=== PATIENT | female | born 1970 | race Caucasian/White ===

== ENCOUNTER 2017-08-28 17:25 | Emergency (ER) | payer OTHER ==
[~2017-08-28] VITALS: Ht 170.2 cm; Wt 100.0 kg
[2017-08-28 17:37] VITALS: BP 136/85; PULSE 81; RESP 20; TEMP 98.6; O2SAT 96
[2017-08-28] MEDS ORDERED: MIDAZOLAM HCL 2 MG/2 ML VIAL IV PUSH ONE ×2 (18:30→19:00)
--- NOTE | 2017-08-28 18:30 | RADRPT ---
EXAM DATE/TIME: 08/28/2017 18:02 [facility] COMPARISON: No previous studies available for comparison. INDICATIONS : Left elbow pain post fall. MEDICAL HISTORY : None. SURGICAL HISTORY : None. ENCOUNTER: Initial ACUITY: 1 day PAIN SCORE: 10/10 LOCATION: Left elbow. FINDINGS: Abnormal. There is dislocation of the humerus with respect to the radius and ulna with the humerus b eing displaced anteriorly and medially. There is a linear calcific or ossific density seen in the ol ecranon fossa which measures 2 x 6 mm. Prominent soft tissue swelling about the elbow. CONCLUSION: Humeral dislocation with respect to the forearm. Possible small ossific fragment in the olecranon fo ssa. Curtis Flowers MD on August 28, 2017 at 18:26 Board Certified Radiologist. This report was verified electronically.
--- NOTE | 2017-08-28 18:35 | RADRPT ---
EXAM DATE/TIME: 08/28/2017 18:09 [facility] COMPARISON: No previous studies available for comparison. INDICATIONS : Right ankle pain post fall. MEDICAL HISTORY : None. SURGICAL HISTORY : None. ENCOUNTER: Initial ACUITY: 1 day PAIN SCORE: 4/10 LOCATION: Right ankle. FINDINGS: Three-view examination of the ankle demonstrates moderate soft tissue swelling about the lateral aspe ct of the ankle. The ankle mortise is widened laterally measuring 6 mm (measures 3 mm). There is a small avulsion injury off of the tip of the medial malleolus, nondisplaced.. Possible widening of th e tibiofibular space. CONCLUSION: Bony and ligamentous injury about the ankle with a small avulsion fragment off the medial malleolus a nd widening of the lateral ankle mortise. Curtis Flowers MD on August 28, 2017 at 18:28 Board Certified Radiologist. This report was verified electronically.
[2017-08-28] MEDS ORDERED: MIDAZOLAM HCL 5 MG/ML VIAL (1 ML) IV ONE (19:00)
[2017-08-28 19:10] VITALS: O2SAT 100
--- NOTE | 2017-08-28 19:25 | RADRPT ---
EXAM DATE/TIME: 08/28/2017 19:09 [facility] COMPARISON: ELBOW LEFT LIMITED (AP & LAT), August 28, 2017, 18:02. INDICATIONS : Post reduction. MEDICAL HISTORY : None. SURGICAL HISTORY : None. ENCOUNTER: Subsequent ACUITY: 1 day PAIN SCORE: Non-responsive. LOCATION: Left elbow. FINDINGS: 2 view examination of the elbow status post reduction demonstrates normal alignment of the humerus wi th the radius and ulna. On the frontal view, there is a 2 mm ossific density adjacent to the trochle a which could represent an intra-articular loose body. The examination is performed in a fiberglass splint. There is visualization of the posterior fat-pad characteristic of elbow effusion. CONCLUSION: Status post reduction of elbow dislocation. Possible intra-articular loose body seen on the frontal view. Curtis Flowers MD on August 28, 2017 at 19:21 Board Certified Radiologist. This report was verified electronically.
[2017-08-28] MEDS ORDERED: PERC5TAB12 PO (20:18)
[2017-08-28] MEDS ORDERED: ROLLER WALKER1 MI1 (20:20)
--- NOTE | 2017-08-28 20:21 | PD ---
HPI Chief Complaint: Fall Time Seen by Provider: 17:42 Travel History International Travel<30 days: No Contact w/Intl Traveler<30days: No Traveled to known affect area: No History of Present Illness HPI Patient is a 46-year-old female presenting to the emergency department for evaluation after a mechanical fall. Patient was walking at work when she tripped over a piece of rug falling to the ground onto her left outstretched hand, subsequently experiencing left elbow and right ankle pain. When EMS arrived patient was on the ground, there was no head injury or loss of consciousness. Patient did not attempt to ambulate on her ankle because of the pain. She reports the pain as a 9 out of 10 and is as aching and throbbing. She reports being unable to move her elbow. She denies any nausea, vomiting, abdominal pain, chest pain or shortness of breath. PFSH Past Medical History Asthma: Yes Diminished Hearing: No Tetanus Vaccination: Unknown Influenza Vaccination: No ?: : 3 Para: 3 Miscarriage: 0 : 0 Past Surgical History Appendectomy: Yes (1990) Social History Alcohol Use: Yes () Tobacco Use: Yes (09/11) Substance Use: No Allergies-Medications (Allergen,Severity, Reaction): Coded Allergies: erythromycin base (Verified Allergy, Unknown, 08/28/17) Reported Meds & Prescriptions Reported Meds & Active Scripts Active Wheelchair Elevated Leg (Device) 1 Mis Mis Ea .ROUTE DIRECTED Roller Walker (Misc. Devices) 1 Mis Mis Ea .ROUTE NOW Percocet (Oxycodone-Acetaminophen) 5-325 mg Tab 1 Tab PO Q4H PRN Review of Systems Except as stated in HPI: all other systems reviewed are Neg Musculoskeletal: Positive: Limited ROM, Edema, Pain Physical Exam Narrative GENERAL: Well-developed, well-nourished, alert female. Appears uncomfortable, in no acute distress. SKIN: Warm and dry. Superficial abrasion to the inner aspect of the left elbow. HEAD: Atraumatic. Normocephalic. EYES: Pupils equal and round. No scleral icterus. No injection or drainage. ENT: No nasal bleeding or discharge. Mucous membranes pink and moist. NECK: Trachea midline. No JVD. CARDIOVASCULAR: Regular rate and rhythm. RESPIRATORY: No accessory muscle use. Clear to auscultation. Breath sounds equal bilaterally. GASTROINTESTINAL: Abdomen soft, non-tender, nondistended. Hepatic and splenic margins not palpable. MUSCULOSKELETAL: Extremities without clubbing, cyanosis, or edema. No obvious deformities. Decreased range of motion with flexion and extension of left elbow. Mild edema noted to the lateral aspect of the right ankle. NEUROLOGICAL: Awake and alert. No obvious cranial nerve deficits. Motor grossly within normal limits. Five out of 5 muscle strength in the arms and legs. Normal speech. PSYCHIATRIC: Appropriate mood and affect; insight and judgment normal. Data Data Last Documented VS Vital Signs Date Time Temp Pulse Resp B/P (MAP) Pulse Ox O2 Delivery O2 Flow Rate FiO2 08/28/17 19:10 100 3.00 08/28/17 17:37 98.6 81 20 136/85 (102) Orders Orders Ankle, Complete ([id number]) (08/28/17 ) Elbow, Limited (Ap&Lat) (08/28/17 ) Iv Access Insert/Monitor (08/28/17 18:30) Midazolam Inj (Versed Inj) (08/28/17 18:30) Splinting (08/28/17 ) Midazolam Inj (Versed Inj) (08/28/17 19:00) Midazolam Inj (Versed Inj) (08/28/17 19:00) Elbow, Limited (Ap&Lat) (08/28/17 ) Splinting (08/28/17 ) Ed Discharge Order (08/28/17 20:26) Oxycodone-Acetamin 7.5-325 Mg (Percocet (08/28/17 20:30) MDM Medical Decision Making Medical Screen Exam Complete: Yes Emergency Medical Condition: Yes Interpretation(s) Vital Signs Date Time Temp Pulse Resp B/P (MAP) Pulse Ox O2 Delivery O2 Flow Rate FiO2 08/28/17 19:10 100 3.00 08/28/17 17:37 98.6 81 20 136/85 (102) 96 Differential Diagnosis Fracture versus sprain versus strain versus dislocation versus other Narrative Course Patient is a 46-year-old female presenting to emergency for evaluation after mechanical fall. Patient's vital signs are stable, she was given 10 mg of morphine en route via EMS. Imaging ordered and pending. Left elbow x-ray shows a dislocation. Discussed findings with Dr. La my attending physician. Patient will be placed under conscious sedation for a reduction. Patient was adequately sedated, with Versed the elbow was reduced, patient tolerated procedure well. After reduction patient was placed in a long-arm splint, repeat images show successful reduction. Ankle x-ray shows Bony and ligamentous injury about the ankle with a small avulsion fragment off the medial malleolus and widening of the lateral ankle mortise, patient was placed in a [place] splint. Procedures Procedure Narrative After the risks and benefits were discussed the following procedure was performed: MODERATE SEDATION: The patient was placed on a monitoring engineer and pulse oximetry. An ambu bag and suction was immediately available at bedside. The patient was monitored by the nurse. Oxygen saturation , heart rate and blood pressure were monitored. Procedural sedation was acheived using Versed. The patient was observed until awake and alert. Procedural Sedation time in attendance was [address] La left elbow was held in 90 position while pressure was placed on the humerus in a downward force to reduce the dislocation. Patient tolerated procedure well. Diagnosis Primary Impression: Elbow dislocation Qualified Codes: S53.105A - Unspecified dislocation of left ulnohumeral joint , initial encounter Additional Impression: Ankle fracture Qualified Codes: S82.891A - Other fracture of right lower leg, initial encounter for closed fracture Referrals: Rich Herrera MD 3 days Orthopaedic Surgeon 3 days Patient Instructions: Ankle Fracture (ED), General Instructions Additional Instructions: Follow-up with her primary doctor Follow-up with orthopedic surgeon in 2-3 days Rest, elevate extremity Do not bear weight on right ankle until cleared by orthopedics Do not drive or operate machinery or take any narcotic pain medication Return to emergency department for any new or worsening symptoms Med/Other Pt SpecificInfo: Prescription(s) given Scripts Ondansetron Odt (Zofran Odt) 4 Mg Tab 4 MG SL Q6HR Y for Nausea/Vomiting, #15 TAB 0 Refills Prov: Barbara Harris 08/28/17 Wheelchair Elevated Leg (Wheelchair Elevated Leg) 1 Mis Mis EA .ROUTE DIRECTED, #1 0 Refills Prov: Barbara Harris 08/28/17 Misc. Devices (Roller Walker) 1 Mis Mis EA .ROUTE NOW, #1 Prov: Barbara Harris 08/28/17 Oxycodone-Acetaminophen (Percocet) 5-325 mg Tab 1 TAB PO Q4H Y for PAIN, #15 TAB 0 Refills Prov: Barbara Harris 08/28/17 Disposition: 01 DISCHARGE HOME Condition: Stable Barbara Harris Aug 28, 2017 20:21
[2017-08-28] MEDS ORDERED: WHEEMIS3 (20:25)
[2017-08-28] MEDS ORDERED: oxyCODONE/ACETAMINOPHEN 7.5 MG/325 MG TAB PO ONE (20:30)
[2017-08-28] MEDS ORDERED: ZOFR4TAB3 SL (21:03)
[2017-08-28] MEDS ORDERED: ONDANSETRON HCL 4 MG/2 ML VIAL IV PUSH ONE (21:15)
[2017-08-28 21:25] VITALS: BP 143/86; PULSE 72; RESP 18; O2SAT 100
== END 2017-08-28 21:27 | disposition home or self-care (01) ==
LOC: NEPE 17:25
DX: S82.891A Other fracture of right lower leg, initial encounter for closed fracture (principal); S53.105A Unspecified dislocation of left ulnohumeral joint, initial encounter; W01.0XXA Fall on same level from slipping, tripping and stumbling without subsequent striking against object, initial encounter; Y93.01 Activity, walking, marching and hiking
CPT/HCPCS: 24600; 29515; 73070; 73610; 96374; 99152; 99285; J2405